=== PATIENT | female | born 1980 | race Caucasian/White ===

== ENCOUNTER 2019-10-03 10:35 | Outpatient (CLI) | payer OTHER | END 2019-10-03 23:59 | disposition home or self-care (01) | LOC: CFH 10:35 → MERGE 10:45 → CFH 23:59 | PROVIDERS: ATTEND Specialist | DX: Z12.31 Encounter for screening mammogram for malignant neoplasm of breast (principal) | CPT/HCPCS: 77063; 77067 ==